=== PATIENT | female | born 1955 | race Caucasian/White ===

== ENCOUNTER 2020-12-22 14:19 | Emergency (ER) | payer OTHER ==
[~2020-12-22] VITALS: Ht 154.9 cm; Wt 59.0 kg
[2020-12-22] MEDS ORDERED: METFORMIN HCL500 M3 PO (14:41)
[2020-12-22 15:37] LABS: ABSOLUTE NEUTROPHILS 4.3 thou/uL (1.4-8.2); EOSINOPHILS 14.9 % (0.0-3.0); HEMATOCRIT 41.7 % (37.0-47.0); HEMOGLOBIN 14.3 gm/dL (12.0-15.0); LYMPHOCYTES 19.6 % (24.0-44.0); MCHC 34.3 g/dL (28.0-37.0); MCV 93.3 fL (80.0-100.0); MONOCYTES 6.2 % (1.0-8.0); PLATELET COUNT 215 thou/uL (150-400); POLYS 57.3 % (36.0-66.0); RBC 4.47 mil/uL (4.20-5.00); RDW 13.3 % (10.5-14.5); WBC 7.5 thou/uL (4.0-11.0)
[2020-12-22 15:44] LABS: ANION GAP 11 mmol/L (7-16); BUN 7 mg/dL (7-18); CALCIUM 8.9 mg/dL (8.5-10.1); CHLORIDE 109 mmol/L (98-107); CO2 25 mmol/L (21-32); CREATININE 0.9 mg/dL (0.6-1.0); GLUCOSE 149 mg/dL (74-106); SODIUM 145 mmol/L (136-145)
[2020-12-22 15:54] LABS: ALBUMIN 3.4 g/dL (3.4-5.0); SGOT 20 U/L (15-37); SGPT 24 U/L (14-59); TOTAL BILIRUBIN 0.3 mg/dL (0.2-1.0); TOTAL PROTEIN 6.5 g/dL (6.4-8.2); TROPONIN-I <0.06 ng/mL (<0.06)
[2020-12-22] MEDS ORDERED: PROMETH-CODEIN 65 ML PO (17:30)
[2020-12-22] MEDS ORDERED: PREDNISONE 20 M20 MG PO (17:30)
[2020-12-22 17:52] VITALS: BP 141/46
--- NOTE | 2020-12-23 15:18 | EKG ---
[address] [address] ELECTROCARDIOGRAM REPORT Name: JAMIE CUBA Room #: [facility]#: [id number] Admission: 12/22/20 Attend Phys: Discharge: 12/22/20 Date of : 53 Report #: [id number] 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 12/23/20 1518 1429 1429 Jose Bradshaw MD, FACC /EPI
== END 2020-12-22 17:53 | disposition home or self-care (01) ==
LOC: ER 14:19
PROVIDERS: Physician Assistant
DX: J45.901 Unspecified asthma with (acute) exacerbation (principal); Z20.822 Contact with and (suspected) exposure to COVID-19; E11.9 Type 2 diabetes mellitus without complications; F17.200 Nicotine dependence, unspecified, uncomplicated; Z79.84 Long term (current) use of oral hypoglycemic drugs